=== PATIENT | female | born 1995 | race Caucasian/White ===

== ENCOUNTER 2017-01-14 05:32 | Emergency (ER) | payer SELFPAY ==
[2017-01-14 06:01] LABS: #Basophils 0.1 thou/uL (0.0-0.2); #Eosinphils 0.3 thou/uL (0.0-0.7); #Lymphocytes 3.8 thou/uL (1.20-3.40); #Monocytes 0.6 thou/uL (0.11-0.59); #Neutrophils 5.2 thou/uL (1.40-6.50); %Basophils 0.8 % (0.0-1.0); %Lymphocytes 38.3 % (28.0-48.0); Hematocrit 46.1 % (36.0-47.0); Mean Platelet Volume 6.8 fL (7.4-10.4); Red Blood Cell (RBC) Count 5.05 mill/uL (4.00-5.20)
[2017-01-14] MEDS ORDERED: Ketorolac Tromethamine 30 MG/ML VIAL ONE (06:05)
[2017-01-14 06:18] LABS: ALT (SGPT) Less than 7 U/L (8-55); AST (SGOT) 17 U/L (5-30); Alkaline Phosphatase 74 U/L (40-150); Anion Gap 13 mmol/L (10-20); BUN (Urea Nitrogen) 12 mg/dL (8.4-21.0); Bilirubin, Total 0.6 mg/dL (0.2-1.2); Calc. Creatinine Clearance 0 mL/min (70-130); Calcium 9.5 mg/dL (7.8-10.44); Carbon Dioxide 24 mmol/L (22-29); Chloride 107 mmol/L (98-107); Estimated GFR-MDRD Greater than 90; Globulin 3.6 g/dL (2.4-3.5); Protein, Total 8.2 g/dL (6.0-8.3)
[2017-01-14 07:36] LABS: Bilirubin Small (Negative); Blood, Urine Moderate (Negative); Glucose, Urine (Dipstick) Negative (Negative); Ketone, Urine Trace mg/dL (Negative); Nitrite Negative (Negative); Protein, Urine (Dipstick) 30 mg/dL (Neg-Trace)
[2017-01-14 07:38] LABS: Bacteria/HPF 4+ HPF (None Seen); Hyaline Casts/LPF 4-6 HYALINE CAST LPF (0-3 Hyaline); RBC/HPF 21-50 HPF (0-3)
== END 2017-01-14 08:09 | disposition home or self-care (01) ==
LOC: ERS 05:32
DX: N39.0 Urinary tract infection, site not specified (principal); J45.909 Unspecified asthma, uncomplicated
CPT/HCPCS: 80053; 81003; 81015; 81025; 85025; 87077; 87086; 87186; 99283; J1885

== ENCOUNTER 2017-02-11 18:58 | Emergency (ER) | payer SELFPAY ==
[2017-02-11 20:16] LABS: Bilirubin Small (Negative); Blood, Urine Negative (Negative); Glucose, Urine (Dipstick) Negative (Negative); Ketone, Urine Trace mg/dL (Negative); Nitrite Negative (Negative); Protein, Urine (Dipstick) 100 mg/dL (Neg-Trace)
[2017-02-11 20:19] LABS: Bacteria/HPF 1+ HPF (None Seen); Hyaline Casts/LPF 4-6 HYALINE CAST LPF (0-3 Hyaline); WBC/HPF 0-3 HPF (0-3)
[2017-02-11] MEDS ORDERED: Lidocaine 1% PF 5 ML VIAL ONE (20:37)
[2017-02-11] MEDS ORDERED: Azithromycin 250 MG TAB ONE ×2 (20:37→20:38)
[2017-02-11] MEDS ORDERED: cefTRIAXone\\ROCEPHIN 250 MG VIAL ONE (20:37)
== END 2017-02-11 21:10 | disposition home or self-care (01) ==
LOC: ERS 18:58
DX: Z20.2 Contact with and (suspected) exposure to infections with a predominantly sexual mode of transmission (principal); J45.909 Unspecified asthma, uncomplicated
CPT/HCPCS: 81003; 81015; 81025; 87086; 87480; 87491; 87510; 87591; 87660; 96372; J0696; J2001

== ENCOUNTER 2017-10-24 00:04 | Emergency (ER) | payer SELFPAY ==
--- NOTE | 2017-10-24 08:22 | ULT ---
PRELIMINARY REPORT/[facility]/EMERGENTY AFTER-HOURS PROCEDURE US Uterus, Limited CLINICAL HISTORY: 22 years old, female; Pain and signs and symptoms; Lmp or gestational age (in weeks): 0710/18; Antepa rtum complications; Bleeding; complicated by abdominal or pelvic pain; Lower; First trimest er; Gestational age or lmp: 3w3d; Patient HX: Vaginal bleeding S/P elective pill x 2 weeks ago TECHNIQUE: Real-time ultrasound of the maternal uterus (limited) with image documentation. COMPARISON: No relevant prior studies available. FINDINGS: Fetus: The uterus measures 6.9 x 3.7 by 4 cm. The endometrial stripe measures 1 cm. No evidence for i ntrauterine . No definite evidence for residual products of conception. Adnexa: The left ovary measures 1.3 x 2.4 x 1.5 cm. The right ovary measures 1.9 cm x 2.8 x 1.1 cm. IMPRESSION: No evidence for intrauterine . No definite evidence for residual products of conception. Correlation with serial beta hCG and ultrasound study as clinically indicated. Thank you for allowing us to participate in the care of your patient. Dictated and Authenticated by: Lexi Clements DO 10/24/2017 3:37 AM Central Time ([place] & [place]) ULTRASOUND PELVIC TRANSVAGINAL WITH DOPPLER: Date: 10/24/17 HISTORY: Pelvic pain. Vaginal bleeding after an elective 2 weeks prior. TECHNIQUE: Real-time Canseco scale and color spectral analysis of the pelvis was performed with transabdominal and transvaginal approach. FINDINGS: The uterus measures 7.4 x 3.5 x 4.0 cm. Endometrial thickness is 1.0 cm. Both ovaries are normal. Right ovary measures 2.8 x 1.3 x 1.9 cm. Left ovary measures 2.4 x 1.5 x 1.3 cm. No intrauterine is present. No retained products are appreciated. IMPRESSION: No retained products of conception are appreciated. Recommend close follow-up with the patient's HCG. If this does not decrease adequately or if it starts to rise, follow-up recommended. POS: [facility]
== END 2017-10-24 03:25 | disposition home or self-care (01) ==
LOC: EEVIPCON 00:04 → ERS 00:04
DX: O03.9 Complete or unspecified spontaneous abortion without complication (principal); N39.0 Urinary tract infection, site not specified; J45.909 Unspecified asthma, uncomplicated
CPT/HCPCS: 76856; 84702; 86850; 86900; 86901